=== PATIENT | female | born 1980 | race Caucasian/White ===

== ENCOUNTER 2016-12-28 16:43 | Emergency (ER) | payer MEDICAID ==
[2016-12-28 17:12] LABS: Hematocrit 47.7 % (37.0-47.0); Hemoglobin 15.7 gm/dL (12.5-16.0); Mean Cell Volume 92.1 fl (78-100); Mean Corpuscular Hemoglobin 30.3 pg (27-31); Mean Corpuscular Hgb Conc 32.9 g/dl (32-36); Mean Platelet Volume 11.5 fl (6.0-9.5); Neutrophil # 7.6 K/mm3 (1.3-6.0); Platelet Count 224 K/mm3 (150-450); Red Blood Count 5.18 M/mm3 (4.2-5.4); Red Cell Distribution Width 12.3 % (11.5-14.0); White Blood Count 11.5 K/mm3 (4.0-10.5)
[2016-12-28 17:25] LABS: Albumin * 3.8 gm/dl (3.4-5.0); Anion Gap 12.4 mmol/L (6.8-13.8); BUN/Creatinine Ratio 12.8 (9.0-21.6); Bilirubin, Total 0.7 mg/dL (0.0-1.1); Ca. Corrected For Albumin 8.9 mg/dL (8.4-10.2); Calcium * 9.1 mg/dL (7.9-10.9); Carbon Dioxide 28.8 mmol/L (24-32.6); Potassium 4.2 mmol/L (3.4-4.6); Total Protein 7.9 gm/dL (6.2-8.2)
--- OUTSIDE RECORDS SUMMARY | 2016-12-28 17:25 | XMS REPORT | Continuity of Care Document ---
:1980 Author Organization [facility] [place] [address] Care Team Providers Name Role Phone Unavailable Primary Care Provider Unavailable Source Comments This disclosure is being made pursuant to the [employer] program and maynot contain all information available regarding this patient.[facility] Active Allergies and Adverse Reactions Not on File Current Medications Be aware that medications may not be up to date as of this document. Alwaysverify current medications with the patient. Not on file Active Problems Not on file Social History Tobacco Use Types Packs/Day Years Used Date Never Assessed Plan of Care Health Maintenance Due Date Last Done Comments Retired-Pertussis Vaccine Adult 1998 Retired-Tetanus Vaccine Adult 1998 Pap Smear 2000 Retired-INFLUENZA VACCINE 05/10/2015 Results from Last 3 Months Not on file
--- OUTSIDE RECORDS SUMMARY | 2016-12-28 17:25 | XMS REPORT | Continuity of Care Document ---
:1980 Author Organization [facility] ([facility]) Address [address] [place] [address] Phone [phone] Care Team Providers Name Role Phone Provider, No-Primary Care Primary Care Provider Unavailable Source Comments This disclosure is being made pursuant to the Care Everywhere program, applicable federal and state laws, and may not contain all informaitonavailable regarding this patient.[facility] ([facility]) Active Allergies and Adverse Reactions Allergen Noted Date Severity Reactions Comments Codeine 05/14/2010 Nausea & Vomiting Erythromycin 05/14/2010 Nausea & Vomiting Hydrocodone-Acetaminophen 05/14/2010 Nausea & Vomiting Current Medications Prescription Sig. Disp. Refills Start Date End Date Status medroxyPROGESTERone 150 Inject 150 mg Active mg/mL injection syringe intramuscularly once. 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 Cholelithiasis 05/17/2010 Social History Tobacco Use Types Packs/Day Years Used Date Current Every Day Smoker 1.5 29 Last Filed Vital Signs Vital Sign Reading Time Taken Blood Pressure 116/66 01/25/2016 10:04 AM CDT Pulse 74 01/25/2016 10:04 AM CDT Temperature 36.3 C (97.3 F) 01/25/2016 8:24 AM CDT Respiratory Rate 15 05/17/2010 8:00 AM CDT Height 1.705 m (5' 7.13") 01/25/2016 8:24 AM CDT Weight 109.6 kg (241 lb 10 oz) 01/25/2016 8:24 AM CDT Body Mass Index 37.7 01/25/2016 8:24 AM CDT Oxygen Saturation 100% 05/17/2010 8:00 AM CDT Plan of Care Health Maintenance Due Date Last Done Comments Hepatitis B Vaccine (1 of 3 - Primary Series) 1980 Tdap Vaccine 1990 Lipid Disorder Screening 1997 MMR Vaccine 1997 Td Vaccine 1997 Pneumococcal Vaccine (1 of 1 - PPSV23) 1998 Cervical Cancer Screening 2009 Influenza Vaccine: Seasonal (#1) 04/09/2016 Results from Last 3 Months Not on file
[2016-12-28] MEDS ORDERED: METOCLOPRAMIDE HCL 5 MG/ML VIAL IV ONE (17:30)
[2016-12-28] MEDS ORDERED: KETOROLAC TROMETHAMINE 30 MG/ML VIAL IV ONE (17:30)
[2016-12-28] MEDS ORDERED: NORMAL SALINE 1,000 ML IV ONE (17:30)
[2016-12-28] MEDS ORDERED: KETOROLAC TROMETHAMINE 30 MG/ML VIAL ONE (17:35)
[2016-12-28] MEDS ORDERED: METOCLOPRAMIDE HCL 5 MG/ML VIAL ONE (17:35)
[2016-12-28 18:16] LABS: Urine Bilirubin Negative (NEGATIVE); Urine Ketone Negative (NEGATIVE); Urine Nitrite Negative (NEGATIVE); Urine Protein Negative (NEGATIVE); Urine Specific Gravity >=1.030 SP.GR. (1.005-1.010); Urine Urobilinogen Normal (NORMAL); Urine pH 5.5 pH (5.0-7.0)
[2016-12-28 18:24] LABS: Urine Appearance Clear; Urine Bacteria 1+; Urine Blood 10 /ul (NEGATIVE); Urine Color Yellow; Urine RBC 0-5 /hpf (0-5); Urine WBC 0-5 /hpf (0-5)
--- NOTE | 2016-12-28 19:19 | ERNOTE ---
Abdominal HPI - Narrative Date of Service: 12/28/16 - General Chief Complaint: Abdominal Pain Time Seen by Provider: 12/28/16 17:14 Source: patient, RN notes reviewed, past records Exam Limitations: no limitations - Immun/Allergies/Home Medications Immunizatons: IMMUNIZATION HX Immunizations Up to Date No History of Influenza Vaccine No Hx Pneumococcal Vaccination No Allergies/Adverse Reactions: Allergies codeine Allergy (Verified 12/28/16 16:52) erythromycin base Allergy (Verified 12/28/16 16:52) Home Medications: HOME MEDICATIONS Levothyroxine Sodium [Synthroid] 75 mcg PO DAILY 07/04/16 [Last Taken Unknown] LORazepam [Ativan] 1 mg PO TID PRN 12/28/16 [Last Taken Unknown] - History of Present Illness Narrative: 36 y/o female to ED by private vehicle for RLQ adominal pain that began 2 days ago. The pain was intermittent, but became worse and constant today. She also reports nausea, but no vomiting. Her last bowel movement was yesterday and was "normal." She had similar symptoms 5 months ago and was seen here. She had a CT scan at that time. This was unremarkable. Timing: constant, getting worse Quality: severe, aching Activities at Onset: none Prior Abdominal Problems: Present: similar symptoms Review of Systems - Review of Systems Constitutional: Present: malaise. Absent: recent illness, fever EYE: Present: no symptoms reported ENT: Present: no symptoms reported Respiratory: Absent: shortness of breath, cough Cardiology: Absent: chest pain, palpitations Gastrointestinal/Abdominal: Present: nausea, abdominal pain, eating less, drinking less. Absent: vomiting, diarrhea, constipation Genitourinary: Absent: dysuria, hematuria Musculoskeletal: Absent: back pain, muscle pain Skin: Absent: rash, lesions Neurological: Absent: headache, dizziness/light-headedness Endocrine: Present: no symptoms reported Hematologic/Lymphatic: Present: no symptoms reported Psych: Present: no symptoms reported - Patient's Past Medical History Patient History - Medical: Anxiety, Hypothyroidism Patient History - Cardiac/Respiratory: No pertinent hx Patient History - Cancer: No Hx of Cancer Patient History - Surgical Procedures: Cholecystectomy, T & A Patient History - Other: None LMP (females 10-50): 3 weeks - Family History Father Family History - Medical: - Social History Living Situations: home Abuse History: No History of abuse Psych History: Hx of Anxiety Does anyone smoke in the home?: Yes Smoking Status: Current every day smoker Alcohol Use: none Drug Use: none - Immunizations Immunizations Up to Date: No Hx Pneumococcal Vaccination: No History of Influenza Vaccine: No Physical Exam - Physical Exam General Appearance: Present: wd/wn, alert, no apparent distress, obese, other - appears uncomfortable Eye Exam: Normal inspection: bilateral Ears, Nose, Throat: Present: normal ENT inspection Neck: Present: normal inspection, nontender, supple, full range of motion Respiratory: Present: no respiratory distress, normal breath sounds, no accessory muscle use, lungs clear Cardiovascular/Chest: Present: regular rate, rhythm, no murmur, normal peripheral pulses Gastrointestinal/Abdominal: Present: normal bowel sounds, nondistended, soft, tenderness - moderate, RLQ. Absent: rebound, mass, hernia Back Exam: Present: normal inspection, no CVA tenderness Neurological Exam: Present: alert, oriented, normal mood/affect, no motor/ sensory deficits Skin Exam: Present: normal color, warm/dry ED Progress - Results and Orders Patient's Lab Results:: I have reviewed the patient's lab results. - Vital Signs Patient's Vital Signs:: I have reviewed the patient's vital signs. Vital Signs: Vital Signs 12/28/16 16:49 Temperature 37.0 C Pulse Rate 98 Respiratory 16 Rate Blood Pressure 134/52 O2 Sat by Pulse 97 Oximetry - X-Ray X-Ray #1 X-Ray: abdomen Interpretation: Interp. by me X-ray Comments: Nonobstructive bowel gas pattern, no acute findings - Progress/Reassessment Chief Complaint: Abdominal Pain Plan - Plan Plan: WBC mildly elevated at 11.7, labs and xray otherwise unremarkable. Pain much improved with Toradol. Discussed further evaluation to r/o appendicitis with CT scan and additional radiation exposure after having a CT for the same symptoms just 5 months ago. Patient agreeable to holding off on CT scan for now but returning for worsening pain. Also discussed f/u with me in the walk-in clinic tomorrow if she has not worsened, but has not improved either. Departure - Departure Clinical Impression: Abdominal pain Qualifiers: Abdominal location: right lower quadrant Qualified Code(s): R10.31 - Right lower quadrant pain Disposition: Home Follow Up Needed Condition: Stable Instructions: Abdominal Pain, Adult, [id number] Additional Instructions: Return to ER if pain worsens Can see me for recheck/labs in clinic tomorrow Soft bland diet, adequate fluid intake Referrals: Hina Farah DO [Primary Care Provider] -
[2016-12-28 19:28] VITALS: BP 128/54
== END 2016-12-28 19:15 | disposition home or self-care (01) ==
LOC: ER 16:43
DX: R10.31 Right lower quadrant pain (principal); D72.829 Elevated white blood cell count, unspecified; F17.200 Nicotine dependence, unspecified, uncomplicated

== ENCOUNTER 2016-12-29 09:56 | Emergency (ER) | payer MEDICAID ==
[2016-12-29] MEDS ORDERED: KETOROLAC TROMETHAMINE 30 MG/ML VIAL IM ONE (10:20)
[2016-12-29] MEDS ORDERED: NORMAL SALINE 1,000 ML IV ONE (10:20)
[2016-12-29] MEDS ORDERED: ONDANSETRON HCL/PF 2 MG/ML VIAL IV ONE (10:21)
[2016-12-29] MEDS ORDERED: KETOROLAC TROMETHAMINE 30 MG/ML VIAL ONE (10:30)
[2016-12-29] MEDS ORDERED: ONDANSETRON HCL/PF 2 MG/ML VIAL ONE (10:30)
[2016-12-29 10:31] LABS: Hematocrit 42.9 % (37.0-47.0); Hemoglobin 14.5 gm/dL (12.5-16.0); Mean Cell Volume 91.9 fl (78-100); Mean Corpuscular Hgb Conc 33.8 g/dl (32-36); Mean Platelet Volume 11.7 fl (6.0-9.5); Neutrophil # 7.2 K/mm3 (1.3-6.0); Neutrophil % 61.9 % (42-75.0); Platelet Count 204 K/mm3 (150-450); Red Blood Count 4.67 M/mm3 (4.2-5.4); Red Cell Distribution Width 12.5 % (11.5-14.0); White Blood Count 11.6 K/mm3 (4.0-10.5)
--- NOTE | 2016-12-29 10:38 | ERNOTE ---
Abdominal HPI - Narrative Date of Service: 12/29/16 - General Chief Complaint: Abdominal Pain Time Seen by Provider: 12/29/16 10:17 Source: patient Exam Limitations: no limitations - Immun/Allergies/Home Medications Immunizatons: IMMUNIZATION HX Immunizations Up to Date Yes History of Influenza Vaccine No Hx Pneumococcal Vaccination No Allergies/Adverse Reactions: Allergies codeine Allergy (Verified 12/29/16 10:04) erythromycin base Allergy (Verified 12/29/16 10:04) Home Medications: HOME MEDICATIONS Levothyroxine Sodium [Synthroid] 75 mcg PO DAILY 07/04/16 [Last Taken Unknown] LORazepam [Ativan] 1 mg PO TID PRN 12/28/16 [Last Taken Unknown] Magnesium Citrate [Citrate of Magnesia] 296 ml PO NOW #1 btl 12/29/16 [Last Taken Unknown] - Pain Score Pain Score #1 Pain Score: 6 Abdominal Pain Onset Location: RLQ Pain Radiation: flank - History of Present Illness Narrative: Patient is a 36 year old female who presents today to the clinic with complaints of continued pain to RLQ now radiating into right flank area. Patient originally presented to the ED last night with complaints of constant RLQ pain. Was given Toradol and discharged to home. Patient states she ate dinner last night and went to bed about 2130 last night without incident. States awoke this morning 0430 to urinate and felt a "twisting type pain" in right kidney. States she was nauseated and that it burned with urination. Presented to the walk in clinic and was brought to ED by STEFANIE Landaverde for further evaluation. Patient states that intermittent "twinges" of pain began earlier this week but pain progressively worsened until yesterday when it was constant. Denies fever, vomiting or diarrhea. Was able to eat eggs and drink coffee for breakfast about 0730 this am without vomiting. Last BM 2 days ago. Is sexually active and she nor her fiance use any control methods. Date (Duration): 12/28/16 Timing: constant, getting worse Quality: moderate, other - constant sharp pain to RLQ and twisting type pain to right flank Activities at Onset: none Modifying Factors - (Improves): Present: lying down Modifying Factors - (Worsens): Present: movement, exercise Associated Symptoms: Present: back pain, nausea. Absent: chest pain, neck pain , diaphoresis, diarrhea-gross blood, diarrhea-mucous, fatigue, fever/chills, heartburn, vomiting, loss of appetite, shortness of breath, swelling/mass in abdomen Prior Abdominal Problems: Present: none Prior Treatment: Present: recently seen Review of Systems - Review of Systems Constitutional: Absent: recent illness, fever, chills, diaphoresis, weakness, fatigue, malaise, weight loss EYE: Present: no symptoms reported ENT: Present: no symptoms reported Respiratory: Absent: shortness of breath, cough, orthopnea, wheezing, stridor Cardiology: Present: edema - c/o kena hand /digit swelling. Absent: chest pain, palpitations Gastrointestinal/Abdominal: Present: See HPI, nausea, constipation - history of constipation, abdominal pain, other - history of kidney stones. Absent: vomiting, diarrhea, eating less, drinking less Genitourinary: Present: pain. Absent: frequency, dysuria, decreased urinary output, discharge Musculoskeletal: Present: back pain - bilateral lower back. Absent: muscle stiffness, neck pain, joint pain Skin: Absent: rash, dryness Neurological: Present: no symptoms reported Endocrine: Present: no symptoms reported Hematologic/Lymphatic: Present: no symptoms reported Psych: Present: no symptoms reported - Patient's Past Medical History Patient History - Medical: Anxiety, Hypothyroidism Patient History - Cardiac/Respiratory: No pertinent hx Patient History - Cancer: No Hx of Cancer Patient History - Surgical Procedures: Cholecystectomy, T & A Patient History - Other: None LMP (females 10-50): 3 weeks - Family History Father Family History - Medical: - Social History Living Situations: significant other Abuse History: No History of abuse Psych History: Hx of Anxiety Does anyone smoke in the home?: Yes Smoking Status: Current every day smoker Have you smoked in the past 12 months: Yes Do you dip or chew tobacco: No Alcohol Use: occasionally Drug Use: none - Immunizations Immunizations Up to Date: Yes Hx Pneumococcal Vaccination: No History of Influenza Vaccine: No Physical Exam - Physical Exam General Appearance: Present: wd/wn, alert, no apparent distress Eye Exam: Normal inspection: bilateral Ears, Nose, Throat: Present: normal ENT inspection Neck: Present: normal inspection, nontender, full range of motion. Absent: limited range of motion Respiratory: Present: no respiratory distress, normal breath sounds, no accessory muscle use, chest nontender, lungs clear. Absent: chest tenderness, respiratory distress, accessory muscle use Cardiovascular/Chest: Present: regular rate, rhythm, no murmur, normal peripheral pulses. Absent: gallop/S3, gallop/S4, systolic murmur, diastolic murmur Peripheral Pulses: N=norm/S=strong/W=weak/B=bound/A=absent: Radial (R): Normal, Radial (L): Normal Gastrointestinal/Abdominal: Present: normal bowel sounds, nondistended, soft, no organomegaly, tenderness - RUQ and RLQ, guarding, rebound. Absent: abnormal bowel sounds, distended, Obturator sign, mass, hernia, hepatomegaly Rectal Exam: Present: deferred Back Exam: Present: normal inspection, normal range of motion, no CVA tenderness , CVA tenderness (R), CVA tenderness (L) - right CVA tenderness worse than left. Absent: no vertebral tenderness Extremity Exam: Present: normal inspection, non-tender, normal range of motion, no edema. Absent: pedal edema, joint redness, joint swelling, extremity edema Neurological Exam: Present: alert, oriented, normal mood/affect, no motor/ sensory deficits Skin Exam: Present: normal color, warm/dry. Absent: diaphoresis, cyanosis, jaundice Lymphatic Exam: Present: no adenopathy ED Progress - Results and Orders Patient's Lab Results:: I have reviewed the patient's lab results. - Vital Signs Patient's Vital Signs:: I have reviewed the patient's vital signs. Vital Signs: Vital Signs 12/29/16 12/29/16 09:58 10:04 Temperature 37.1 C 37.1 C Pulse Rate 90 90 Respiratory 15 15 Rate Blood Pressure 166/72 166/72 O2 Sat by Pulse 97 97 Oximetry - CT/Ultrasound CT/Ultrasound Narrative: CT abdomen and pelvis with contrast shows no acute intra abdominal or pelvic processes noted. - Progress/Reassessment Chief Complaint: Abdominal Pain Progress:: Repeat exam at discharge Progress Note-Subjective: 12/29/16 11:10 No relief from IV Toradol. No vomiting noted. Patient up ambulating to bathroom. No change in physical presentation, labs reviewed. Awaiting CT scan. Will continue to monitor 12/29/16 13:10 Ambulated to radiology department for CT scan without assistance. No vomiting or distress noted. 12/29/16 14:44 Patient resting quietly when provider entered room. Continues to deny NV. Explained results to patient and fiance. Patient understood findings and agreed to home discharge treatment plan Departure - Departure Clinical Impression: Constipation Qualifiers: Constipation type: unspecified constipation type Qualified Code(s): K59.00 - Constipation, unspecified Disposition: Home self-care Condition: Good Instructions: High-Fiber Diet Additional Instructions: Increase fiber i.e. raw vegetables, salad and bran cereal to diet. Increase water intake. Metamucil one scoop in drink daily to help increase fiber intake. Referrals: Hina Farah DO [Primary Care Provider] - Prescriptions: Magnesium Citrate [Citrate of Magnesia] 296 ml PO NOW #1 btl
--- OUTSIDE RECORDS SUMMARY | 2016-12-29 10:44 | XMS REPORT | Continuity of Care Document ---
:1980 Author Organization [facility] [place] [address] Care Team Providers Name Role Phone Unavailable Primary Care Provider Unavailable Source Comments This disclosure is being made pursuant to the [email or web address] program and maynot contain all information available regarding this patient.[facility] Active Allergies and Adverse Reactions Not on [...]
--- OUTSIDE RECORDS SUMMARY | 2016-12-29 10:44 | XMS REPORT | Continuity of Care Document ---
:1980 Author Organization [facility] ([facility]) Address [address] [place] [address] Phone [phone] Care Team Providers Name Role Phone Provider, No-Primary Care Primary Care Provider Unavailable Source Comments This disclosure is being made pursuant to the Care Everywhere program, applicable federal and state laws, and may not contain all informaitonavailable regarding this patient.[facility] ([facility]) Active Allergies and Adverse Reactions Allergen Noted [...]
[2016-12-29 10:45] LABS: Albumin * 3.5 gm/dl (3.4-5.0); BUN/Creatinine Ratio 17.5 (9.0-21.6); Bilirubin, Total 0.6 mg/dL (0.0-1.1); Ca. Corrected For Albumin 9.1 mg/dL (8.4-10.2); Potassium 3.9 mmol/L (3.4-4.6); Total Protein 7.2 gm/dL (6.2-8.2)
[2016-12-29 10:56] LABS: Anion Gap 15.8 mmol/L (6.8-13.8); Carbon Dioxide 26.1 mmol/L (24-32.6)
[2016-12-29] MEDS ORDERED: DIATRIZOATE MEGLU/DIATRIZO SOD 30 ML BTL ONE (11:21)
[2016-12-29 11:23] LABS: Urine Bilirubin Negative (NEGATIVE); Urine Blood Negative /ul (NEGATIVE); Urine Ketone Negative (NEGATIVE); Urine Nitrite Negative (NEGATIVE); Urine Protein Negative (NEGATIVE); Urine Specific Gravity >=1.030 SP.GR. (1.005-1.010); Urine Urobilinogen Normal (NORMAL); Urine pH 5.5 pH (5.0-7.0)
[2016-12-29] MEDS ORDERED: DIATRIZOATE MEGLU/DIATRIZO SOD 30 ML BTL PO ONE (11:25)
[2016-12-29 11:29] LABS: Urine Appearance Clear; Urine Color Yellow
[2016-12-29 11:30] LABS: Urine Bacteria None Seen; Urine RBC None Seen /hpf (0-5); Urine WBC None Seen /hpf (0-5)
[2016-12-29 14:59] VITALS: BP 114/66
== END 2016-12-29 15:01 | disposition home or self-care (01) ==
LOC: ER 09:56
DX: K59.00 Constipation, unspecified (principal); F17.210 Nicotine dependence, cigarettes, uncomplicated

== ENCOUNTER 2017-07-27 23:55 | Emergency (ER) | payer MEDICAID ==
--- NOTE | 2017-07-28 00:40 | ERNOTE ---
Integumentary HPI - General Presenting Symptoms: rash Time Seen by Provider: 07/28/17 00:39 Source: patient, RN notes reviewed Exam Limitations: no limitations - Immun/Allergies/Home Medications Immunizations: IMMUNIZATION HX Immunizations Up to Date Yes History of Influenza Vaccine No Hx Pneumococcal Vaccination No Allergies/Adverse Reactions: Allergies Allergy/AdvReac Type Severity Reaction Status Date / Time codeine Allergy Verified 12/29/16 10:04 erythromycin base Allergy Verified 12/29/16 10:04 hydrocodone Allergy Verified 07/28/17 00:04 Home Medications: HOME MEDICATIONS Levothyroxine Sodium [Synthroid] 75 mcg PO DAILY 07/04/16 [Last Taken Unknown] LORazepam [Ativan] 1 mg PO TID PRN 12/28/16 [Last Taken Unknown] Magnesium Citrate [Citrate of Magnesia] 296 ml PO NOW #1 btl 12/29/16 [Last Taken Unknown] - History of Present Illness Narrative: Patient states that she has had a rash on her chin for 3-4 days. She has not treated it with anything yet. She is worried that she might have shingles, and complains of pain at the rash, but not excruciating by any means, just tender to the touch. The rash crosses over her chin and is on both sides of her chin. Location: Reports: facial Quality: Reports: itching, painful Severity: mild Exposure: Reports: other - dry skin Modifying Factors - (Improves): Reports: nothing Modifying Factors - (Worsens): Reports: nothing Associated Symptoms: Reports: rash Review of Systems - Review of Systems Constitutional: Absent: recent illness, fever, chills, fatigue, malaise EYE: Present: no symptoms reported ENT: Absent: ear pain, sore throat Respiratory: Absent: shortness of breath Cardiology: Absent: chest pain, palpitations Gastrointestinal/Abdominal: Absent: nausea, vomiting, diarrhea, abdominal pain Genitourinary: Present: no symptoms reported Musculoskeletal: Absent: back pain, muscle pain, muscle stiffness Skin: Present: rash Neurological: Absent: anxiety, depressed, headache, dizziness/light-headedness Endocrine: Present: no symptoms reported Hematologic/Lymphatic: Present: no symptoms reported Psych: Present: no symptoms reported - Patient's Past Medical History Patient History - Medical: Anxiety, Hypothyroidism Patient History - Cardiac/Respiratory: No pertinent hx Patient History - Cancer: No Hx of Cancer Patient History - Surgical Procedures: Cholecystectomy, T & A Patient History - Other: None - Family History Father Family History - Medical: - Social History Living Situations: home Abuse History: No History of abuse Psych History: Hx of Anxiety Smoking Status: Former smoker Alcohol Use: none Drug Use: none - Immunizations Immunizations Up to Date: Yes Hx Pneumococcal Vaccination: No History of Influenza Vaccine: No Physical Exam - Physical Exam General Appearance: Present: wd/wn, alert, no apparent distress Head Exam: Present: normal inspection, no evidence of injury Eye Exam: Normal inspection: bilateral, PERRL: bilateral, EOMI: bilateral Ears, Nose, Throat: Present: normal ENT inspection Neck: Present: normal inspection, nontender Respiratory: Present: no respiratory distress, normal breath sounds, no accessory muscle use, chest nontender, lungs clear Cardiovascular/Chest: Present: regular rate, rhythm, no murmur Gastrointestinal/Abdominal: Present: normal bowel sounds, nontender, nondistended, soft Back Exam: Present: normal inspection, normal range of motion Extremity Exam: Present: normal inspection, non-tender, normal range of motion, no edema Neurological Exam: Present: alert, oriented, normal mood/affect, no motor/ sensory deficits Skin Exam: Present: skin rash - Chin, macular with erythema, crosses the midline ED Progress - Vital Signs Patient's Vital Signs:: I have reviewed the patient's vital signs. Vital Signs: Vital Signs 07/28/17 00:01 Temperature 36.8 C Pulse Rate 76 Respiratory 18 Rate Blood Pressure 136/78 O2 Sat by Pulse 100 Oximetry - Progress/Reassessment Chief Complaint: Rash Progress:: Unchanged Progress Note-Subjective: 07/28/17 00:51 I discussed with the patient that her skin is very dry on her face, and the first step in treating her rash is to start applying moisturizer daily. Patient verbalized understanding. Prednisone 60 mg PO. Departure Clinical Impression: Dry skin dermatitis - Departure Disposition: Home self-care Condition: Good Instructions: Pruritus Additional Instructions: Purchase a good quality skin moisturizer and apply daily. Referrals: Hina Farah DO [Primary Care Provider] - (7-10 days, sooner if your problem gets worse.)
[2017-07-28] MEDS ORDERED: predniSONE 20 MG TABLET PO ONE (00:47)
[2017-07-28] MEDS ORDERED: predniSONE 20 MG TABLET ONE (00:49)
[2017-07-28 01:24] VITALS: BP 132/76
== END 2017-07-28 00:53 | disposition home or self-care (01) ==
LOC: ER 23:55
DX: L85.3 Xerosis cutis (principal)

== ENCOUNTER 2017-08-08 13:58 | Emergency (ER) | payer MEDICAID ==
[2017-08-08] MEDS ORDERED: NORMAL SALINE 1,000 ML IV ONE (15:14)
[2017-08-08] MEDS ORDERED: ONDANSETRON HCL/PF 2 MG/ML VIAL IV ONE (15:14)
[2017-08-08] MEDS ORDERED: ONDANSETRON HCL/PF 2 MG/ML VIAL ONE (15:38)
[2017-08-08 15:41] LABS: Hematocrit 40.7 % (37.0-47.0); Hemoglobin 13.8 gm/dL (12.5-16.0); Mean Cell Volume 92.9 fl (78-100); Mean Corpuscular Hemoglobin 31.5 pg (27-31); Mean Corpuscular Hgb Conc 33.9 g/dl (32-36); Neutrophil % 68.2 % (42-75.0); Platelet Count 200 K/mm3 (150-450); Red Blood Count 4.38 M/mm3 (4.2-5.4); White Blood Count 10.2 K/mm3 (4.0-10.5)
[2017-08-08 15:48] LABS: Albumin * 3.6 gm/dl (3.4-5.0); Anion Gap 14.6 mmol/L (6.8-13.8); BUN/Creatinine Ratio 13.6 (9.0-21.6); Bilirubin, Total 0.9 mg/dL (0.0-1.1); Ca. Corrected For Albumin 8.9 mg/dL (8.4-10.2); Calcium * 8.9 mg/dL (7.9-10.9); Carbon Dioxide 25.5 mmol/L (24-32.6); Potassium 4.1 mmol/L (3.4-4.6); Total Protein 7.3 gm/dL (6.2-8.2)
--- NOTE | 2017-08-08 16:44 | ERNOTE ---
Abdominal HPI - Narrative Date of Service: 08/08/17 - General Chief Complaint: Abdominal Pain Time Seen by Provider: 08/08/17 15:00 Source: patient Exam Limitations: no limitations - Immun/Allergies/Home Medications Immunizatons: IMMUNIZATION HX Immunizations Up to Date Yes History of Influenza Vaccine No Hx Pneumococcal Vaccination No Allergies/Adverse Reactions: Allergies codeine Allergy (Verified 12/29/16 10:04) erythromycin base Allergy (Verified 12/29/16 10:04) hydrocodone Allergy (Verified 07/28/17 00:04) Home Medications: HOME MEDICATIONS Levothyroxine Sodium [Synthroid] 75 mcg PO DAILY 07/04/16 [Last Taken Unknown] Dicyclomine HCl [Bentyl] 10 - 20 mg PO TID #80 tab 08/08/17 [Last Taken Unknown] Ondansetron [Zofran Odt] 4 mg PO Q6H PRN #20 tab 08/08/17 [Last Taken Unknown] - History of Present Illness Narrative: Pt. comes in with c/o diffuse abdominal pain that is intermittent and not consistently in any specific location and changes location for 24 hours. Pt. denies any SOB, CP, fever, but does states that she has been nauseated, and has had malaise, and fatigue with some diarrhea. Timing: intermittent Quality: cramping Activities at Onset: none Modifying Factors - (Improves): Present: other - denies Modifying Factors - (Worsens): Present: other - denies Associated Symptoms: Present: fatigue, nausea, weakness. Absent: chest pain, neck pain, diarrhea-gross blood, diarrhea-mucous, swelling/mass in abdomen Prior Abdominal Problems: Present: none Prior Treatment: Absent: recently seen, treated by physician, recently hospitalized, currently on antibiotics Review of Systems - Review of Systems Constitutional: Present: fatigue, malaise. Absent: recent illness, fever, chills, weakness EYE: Present: no symptoms reported ENT: Present: no symptoms reported Respiratory: Present: no symptoms reported. Absent: shortness of breath, cough , wheezing Cardiology: Present: no symptoms reported. Absent: chest pain, palpitations, edema Gastrointestinal/Abdominal: Present: nausea, diarrhea, abdominal pain Genitourinary: Present: no symptoms reported. Absent: frequency, decreased urinary output Musculoskeletal: Present: no symptoms reported. Absent: back pain, joint pain Skin: Present: no symptoms reported. Absent: rash, change in color Neurological: Present: no symptoms reported. Absent: headache, dizziness/light- headedness, numbness, tingling All Other Systems: All systems neg except as marked - Patient's Past Medical History Patient History - Medical: Anxiety, Depression, Hypothyroidism Patient History - Cardiac/Respiratory: No pertinent hx Patient History - Cancer: No Hx of Cancer Patient History - Surgical Procedures: Cholecystectomy, T & A Patient History - Other: None LMP (Calendar): 07/13/17 - Family History Father Family History - Medical: - Social History Living Situations: home Abuse History: No History of abuse Psych History: Hx of Anxiety Smoking Status: Former smoker Have you smoked in the past 12 months: Yes Do you dip or chew tobacco: No - Immunizations Immunizations Up to Date: Yes Hx Pneumococcal Vaccination: No History of Influenza Vaccine: No Physical Exam - Physical Exam General Appearance: Present: wd/wn, alert, no apparent distress Head Exam: Present: normal inspection, no evidence of injury Eye Exam: Normal inspection: bilateral Ears, Nose, Throat: Present: normal ENT inspection, normal pharynx Neck: Present: normal inspection, nontender, supple, full range of motion. Absent: lymphadenopathy (R), lymphadenopathy (L) Respiratory: Present: no respiratory distress, normal breath sounds, no accessory muscle use, chest nontender, lungs clear. Absent: rales, rhonchi, wheezing Cardiovascular/Chest: Present: regular rate, rhythm, no murmur, normal peripheral pulses Gastrointestinal/Abdominal: Present: normal bowel sounds, nondistended, soft, no organomegaly, tenderness - diffuse Back Exam: Present: normal inspection, normal range of motion, no CVA tenderness , no vertebral tenderness Extremity Exam: Present: normal inspection, non-tender, normal range of motion, no edema Neurological Exam: Present: alert, oriented, normal mood/affect, no motor/ sensory deficits Skin Exam: Present: normal color, warm/dry. Absent: pallor, skin rash ED Progress - Results and Orders Patient's Lab Results:: I have reviewed the patient's lab results. - Vital Signs Patient's Vital Signs:: I have reviewed the patient's vital signs. Vital Signs: Vital Signs 08/08/17 08/08/17 14:01 15:42 Temperature 36.8 C 36.8 C Pulse Rate 73 66 Respiratory 16 18 Rate Blood Pressure 140/95 110/55 O2 Sat by Pulse 98 96 Oximetry - Progress/Reassessment Chief Complaint: Abdominal Pain Departure Clinical Impression: Acute gastroenteritis, Dehydration - Departure Disposition: Home self-care Condition: Good Instructions: Rehydration, Adult Additional Instructions: Please follow up with primary provider in 2-3 days increase fluid intake. Referrals: Hina Farah DO [Primary Care Provider] - Prescriptions: Dicyclomine HCl [Bentyl] 10 - 20 mg PO TID #80 tab Ondansetron [Zofran Odt] 4 mg PO Q6H PRN #20 tab PRN Reason: Nausea
[2017-08-08] MEDS ORDERED: DICYCLOMINE HCL 10 MG/ML AMPUL IM ONE ×2 (17:05→17:08)
[2017-08-08 17:07] LABS: Urine Bilirubin Negative (NEGATIVE); Urine Ketone Negative (NEGATIVE); Urine Nitrite Negative (NEGATIVE); Urine Protein Negative (NEGATIVE); Urine Specific Gravity 1.025 SP.GR. (1.005-1.010); Urine Urobilinogen Normal (NORMAL); Urine pH 5.5 pH (5.0-7.0)
[2017-08-08 17:26] LABS: Urine Appearance Clear; Urine Bacteria TRACE; Urine Blood 5 /ul (NEGATIVE); Urine Color Dark Yellow; Urine RBC None Seen /hpf (0-5); Urine WBC None Seen /hpf (0-5)
[2017-08-08 18:06] VITALS: BP 134/62
== END 2017-08-08 18:08 | disposition home or self-care (01) ==
LOC: ER 13:58
DX: K52.9 Noninfective gastroenteritis and colitis, unspecified (principal); E86.0 Dehydration; Z87.891 Personal history of nicotine dependence; E03.9 Hypothyroidism, unspecified
CPT/HCPCS: 36415; 80053; 81001; 85025; 96361; 96372; 96374; 99284; J2405